=== PATIENT | male | born 1965 | race Caucasian/White ===

== ENCOUNTER → 2018-11-27 | Outpatient (CLI) | payer MEDICARE, OTHER ==
--- NOTE | 2018-11-27 08:11 | CT ---
EXAMINATION TYPE: CT image guided sinus DATE OF EXAM: 11/27/2018 COMPARISON: None HISTORY: Chronic Sinusitis CT DLP: 545 mGycm. Automated Exposure Control for Dose Reduction was Utilized. TECHNIQUE: CT scan of the sinuses is performed without contrast, axial images are obtained preprocedu re. FINDINGS: There is complete opacification of the maxillary sinuses, ethmoid air cells, frontal sinus and sphenoid sinus. Underlying polyposis not excluded. Bony expansion noted without definite bone jimena truction. IMPRESSION: Severe pansinusitis and/or underlying polyposis.
== END | disposition home or self-care (01) ==
LOC: RADCTMAIN 07:16
PROVIDERS: ATTEND Otolaryngology
DX: J32.9 Chronic sinusitis, unspecified (principal)
CPT/HCPCS: 70486

== ENCOUNTER 2023-08-13 16:16 | Emergency (ER) | payer OTHER ==
[2023-08-13 20:36] LABS: ALT 31 U/L (4-49); AST 47 U/L (17-59); African American GFR (CKD) >90 (>60 ml/min/1.73 sqM); Albumin 3.3 g/dL (3.5-5.0); Alkaline Phosphatase 104 U/L (38-126); Anion Gap 11 mmol/L; Blood Urea Nitrogen 16 mg/dL (9-20); Calcium 8.5 mg/dL (8.4-10.2); Carbon Dioxide 21 mmol/L (22-30); Chloride 104 mmol/L (98-107); Glucose 116 mg/dL (74-99); Non-African American GFR(CKD) >90 (>60 ml/min/1.73 sqM); Potassium 4.4 mmol/L (3.5-5.1); Sodium 136 mmol/L (137-145); Total Bilirubin 3.3 mg/dL (0.2-1.3); Total Protein 7.2 g/dL (6.3-8.2)
[2023-08-13 21:03] LABS: Anisocytosis Slight; Basophils % (A) 0 %; Eosinophils # (A) 0.4 k/uL (0-0.7); Eosinophils % (A) 4 %; HCT 34.4 % (39.0-53.0); HGB 11.2 gm/dL (13.0-17.5); Lymphocytes # (A) 0.8 k/uL (1.0-4.8); Lymphocytes % (A) 8 %; MCH 28.2 pg (25.0-35.0); MCHC 32.5 g/dL (31.0-37.0); MCV 86.8 fL (80.0-100.0); Mean Platelet Volume 8.4; Monocytes # (A) 0.8 k/uL (0-1.0); Monocytes % (A) 8 %; Neutrophils # (A) 7.6 k/uL (1.3-7.7); Neutrophils % (A) 77 %; RBC 3.96 m/uL (4.30-5.90); RDW 17.8 % (11.5-15.5)
[2023-08-13] MEDS ORDERED: SODIUM CHLORIDE 0.9% 2,000 ML IV ONE (21:05)
--- NOTE | 2023-08-13 21:48 | ED ---
General Adult HPI - General Chief complaint: GI Bleed Stated complaint: GI Bleed Time Seen by Provider: 08/13/23 19:39 Source: patient Mode of arrival: ambulatory Limitations: no limitations - History of Present Illness Initial comments: 58-year-old male brought in from residential with complaints of GI bleed. Patient is a poor historian. He tells me that he vomited blood once today. He has not since vomited blood or vomited at all. He also states that he has had some rectal bleeding which has been ongoing for months. He has history of alcoholism, last drink was 2 months ago. No chest pain, shortness of breath, abdominal pain, nausea, fever, headache, dizziness, numbness, tingling, weakness, palpitations, injury or trauma. - Related Data Home Medications Medication Instructions Recorded Confirmed Levothyroxine Sodium [Synthroid] 100 mcg PO DAILY 08/13/23 08/13/23 Allergies Allergy/AdvReac Type Severity Reaction Status Date / Time No Known Allergies Allergy Verified 08/13/23 20:41 Review of Systems ROS Statement: Those systems with pertinent positive or pertinent negative responses have been documented in the HPI. ROS Other: All systems not noted in ROS Statement are negative. Past Medical History Past Medical History: Hypertension History of Any Multi-Drug Resistant Organisms: None Reported Past Surgical History: Joint Replacement, Orthopedic Surgery Past Psychological History: No Psychological Hx Reported Smoking Status: Never smoker Past Alcohol Use History: None Reported Past Drug Use History: None Reported General Exam Limitations: no limitations General appearance: alert, in no apparent distress Head exam: Present: atraumatic, normocephalic Eye exam: Present: normal appearance ENT exam: Present: normal oropharynx, mucous membranes moist Neck exam: Present: normal inspection Respiratory exam: Present: normal lung sounds bilaterally. Absent: respiratory distress, wheezes, rales, rhonchi, stridor Cardiovascular Exam: Present: regular rate, normal rhythm, normal heart sounds. Absent: systolic murmur, diastolic murmur, rubs, gallop, clicks GI/Abdominal exam: Present: soft. Absent: distended, tenderness, guarding, rebound, rigid Neurological exam: Present: alert, oriented X3 Psychiatric exam: Present: normal affect, normal mood Skin exam: Present: warm, dry Course Vital Signs 08/13/23 08/13/23 16:45 22:25 Temperature 98.1 F 98.8 F Pulse Rate 75 78 Respiratory 20 17 Rate Blood Pressure 119/68 142/78 O2 Sat by Pulse 100 98 Oximetry Medical Decision Making - Medical Decision Making Was pt. sent in by a medical professional or institution ([facility] Vel[facility], [facility]ER, urgent care, hospital, or halfway...) When possible be specific @ -No Did you speak to anyone other than the patient for history (EMS, parent, family, police, friend...)? What history was obtained from this source @ -No Did you review nursing and triage notes (agree or disagree)? Why? @ -I reviewed and agree with nursing and triage notes Were old charts reviewed (outside hosp., previous admission, EMS record, old EKG, old radiological studies, urgent care reports/EKG's, halfway records)? Report findings @ -No old charts were reviewed Differential Diagnosis (chest pain, altered mental status, abdominal pain women, abdominal pain men, vaginal bleeding, weakness, fever, dyspnea, syncope, headache, dizziness, GI bleed, back pain, seizure, CVA, palpatations, mental health, musculoskeletal)? @ -Differential includes Bre Joy tear, esophageal varices, gastric ulcer, this is not an all inclusive list EKG interpreted by me (3pts min.). @ -As above X-rays interpreted by me (1pt min.). @ -None done CT interpreted by me (1pt min.). @ -None done U/S interpreted by me (1pt. min.). @ -None done What testing was considered but not performed or refused? (CT, X-rays, U/S, labs)? Why? @ -None What meds were considered but not given or refused? Why? @ -None Did you discuss the management of the patient with other professionals (professionals i.e. [facility] Velásquez, HAND SHAKER, lab, RT, psych nurse, school social worker, railroad passenger agent, teacher, mortgage loan officer, therapeutic case manager)? Give summary @ -No Was smoking cessation discussed for >3mins.? @ -No Was critical care preformed (if so, how long)? @ -No Were there social determinants of health that impacted care today? How? (Homelessness, low income, unemployed, alcoholism, drug addiction, transportation, low edu. Level, literacy, decrease access to med. care, residential, rehab)? @ -Alcoholism, currently in residential Was there de-escalation of care discussed even if they declined (Discuss DNR or withdrawal of care, Hospice)? DNR status @ -No What co-morbidities impacted this encounter? (DM, HTN, Smoking, COPD, CAD, Cancer, CVA, ARF, Chemo, Hep., AIDS, mental health diagnosis, sleep apnea, morbid obesity)? @ -None Was patient admitted / discharged? Hospital course, mention meds given and route, prescriptions, significant lab abnormalities, going to OR and other pertinent info. @ -58-year-old male presenting with chief complaint of GI bleed. Comes from residential, accompanied by police. Patient tells me he has been having rectal bleeding for months, patient also tells me that he vomited blood once today. He is not currently vomiting blood he is resting comfortably. Vital signs are WNL and the patient is hemodynamically stable. Heart and lungs are clear to auscultation there is no abdominal tenderness. Hemoglobin 11.2. BUN 16. Lactic acid 2.4, likely due to dehydration, patient will receive 2 L fluid bolus. Throughout his course in the ER patient has had no vomiting and no hematemesis. Given his stable hemoglobin and vital signs, he will be discharged back to the residential in police custody. Follow-up with GI. Follow-up with PCP. Report back to ER with any new or worsening symptoms. Discussed return parameters and answered all questions. Patient conveyed verbal understanding and agreed to the plan. I discussed this case in detail with my attending Dr. Mathew Undiagnosed new problem with uncertain prognosis? @ -No Drug Therapy requiring intensive monitoring for toxicity (Heparin, Nitro, Insulin, Cardizem)? @ -No Were any procedures done? @ -No Diagnosis/symptom? @ -Hematochezia Acute, or Chronic, or Acute on Chronic? @ -acute Uncomplicated (without systemic symptoms) or Complicated (systemic symptoms)? @ -Uncomplicated Side effects of treatment? @ -No Exacerbation, Progression, or Severe Exacerbation? @ -No Poses a threat to life or bodily function? How? (Chest pain, USA, CT, pneumonia, PE, COPD, DKA, ARF, appy, cholecystitis, CVA, Diverticulitis, Homicidal, Suicidal, threat to staff... and all critical care pts) @ -No - Lab Data Result diagrams: 08/13/23 20:18 08/13/23 20:18 Lab Results 08/13/23 08/13/23 08/13/23 Range/Units 20:18 20:18 20:18 WBC 10.0 (3.8-10.6) k/uL RBC 3.96 L (4.30-5.90) m/uL Hgb 11.2 L (13.0-17.5) gm/dL Hct 34.4 L (39.0-53.0) % MCV 86.8 (80.0-100.0) fL MCH 28.2 (25.0-35.0) pg MCHC 32.5 (31.0-37.0) g/dL RDW 17.8 H (11.5-15.5) % Plt Count 62 L (150-450) k/uL MPV 8.4 Neutrophils % 77 % Lymphocytes % 8 % Monocytes % 8 % Eosinophils % 4 % Basophils % 0 % Neutrophils # 7.6 (1.3-7.7) k/uL Lymphocytes # 0.8 L (1.0-4.8) k/uL Monocytes # 0.8 (0-1.0) k/uL Eosinophils # 0.4 (0-0.7) k/uL Basophils # 0.0 (0-0.2) k/uL Manual Slide Review Performed Poikilocytosis (manual Present Anisocytosis Slight Sodium 136 L (137-145) mmol/L Potassium 4.4 (3.5-5.1) mmol/L Chloride 104 (98-107) mmol/L Carbon Dioxide 21 L (22-30) mmol/L Anion Gap 11 mmol/L BUN 16 (9-20) mg/dL Creatinine 0.77 (0.66-1.25) mg/dL Est GFR (CKD-EPI)AfAm >90 (>60 ml/min/1.73 sqM) Est GFR (CKD-EPI)NonAf >90 (>60 ml/min/1.73 sqM) Glucose 116 H (74-99) mg/dL Lactic Ac Sepsis Rflx Plasma Lactic Acid Rito 2.4 H* (0.7-2.0) mmol/L Calcium 8.5 (8.4-10.2) mg/dL Total Bilirubin 3.3 H (0.2-1.3) mg/dL AST 47 (17-59) U/L ALT 31 (4-49) U/L Alkaline Phosphatase 104 (38-126) U/L Total Protein 7.2 (6.3-8.2) g/dL Albumin 3.3 L (3.5-5.0) g/dL 08/13/23 08/13/23 08/13/23 Range/Units 20:40 23:27 23:49 WBC (3.8-10.6) k/uL RBC (4.30-5.90) m/uL Hgb (13.0-17.5) gm/dL Hct (39.0-53.0) % MCV (80.0-100.0) fL MCH (25.0-35.0) pg MCHC (31.0-37.0) g/dL RDW (11.5-15.5) % Plt Count (150-450) k/uL MPV Neutrophils % % Lymphocytes % % Monocytes % % Eosinophils % % Basophils % % Neutrophils # (1.3-7.7) k/uL Lymphocytes # (1.0-4.8) k/uL Monocytes # (0-1.0) k/uL Eosinophils # (0-0.7) k/uL Basophils # (0-0.2) k/uL Manual Slide Review Poikilocytosis (manual Anisocytosis Sodium (137-145) mmol/L Potassium (3.5-5.1) mmol/L Chloride (98-107) mmol/L Carbon Dioxide (22-30) mmol/L Anion Gap mmol/L BUN (9-20) mg/dL Creatinine (0.66-1.25) mg/dL Est GFR (CKD-EPI)AfAm (>60 ml/min/1.73 sqM) Est GFR (CKD-EPI)NonAf (>60 ml/min/1.73 sqM) Glucose (74-99) mg/dL Lactic Ac Sepsis Rflx Y Y Plasma Lactic Acid Rito 4.0 H* (0.7-2.0) mmol/L Calcium (8.4-10.2) mg/dL Total Bilirubin (0.2-1.3) mg/dL AST (17-59) U/L ALT (4-49) U/L Alkaline Phosphatase (38-126) U/L Total Protein (6.3-8.2) g/dL Albumin (3.5-5.0) g/dL Disposition Clinical Impression: Hematochezia Disposition: HOME SELF-CARE Condition: Fair Instructions (If sedation given, give patient instructions): Gastrointestinal Bleeding (ED) Additional Instructions: Follow-up with PCP. Report back to ER with any new or worsening symptoms. Is patient prescribed a controlled substance at d/c from ED?: No Referrals: None,Stated [Primary Care Provider] - 1-2 days Dodie Ashton MD [STAFF PHYSICIAN] - 1-2 days Wilson Conde MD [STAFF PHYSICIAN] - 1-2 days Time of Disposition: 21:48
[2023-08-13 22:44] VITALS: BP 142/78; PULSE 78; RESP 17; TEMP 98.8
[2023-08-13 22:49] LABS: Platelet Count 62 k/uL (150-450)
[2023-08-13 22:50] LABS: Poikilocytosis (M) Present
== END 2023-08-14 00:02 | disposition home or self-care (01) ==
LOC: EC 16:16
DX: K92.1 Melena (principal); I10 Essential (primary) hypertension
CPT/HCPCS: 36415; 80053; 83605; 85025; 96360; 96361; 99285

== ENCOUNTER → 2023-09-29 | Outpatient (CLI) | payer BC ==
--- NOTE | 2023-09-29 13:23 | CT ---
EXAMINATION TYPE: CT abdomen wo/w con DATE OF EXAM: 09/29/2023 COMPARISON: None available. HISTORY: Splenomegaly of liver prominence. CT DLP: 656.90 mGycm Automated exposure control for dose reduction was used. TECHNIQUE: Helical acquisition of images was performed from the lung bases through the top of iliac crest to include entire abdomen. CONTRAST: Performed with Oral Contrast and without and with IV Contrast, patient injected with 100ml mL of Isov ue 300. FINDINGS: LUNG BASES: There are a few linear bands of opacity seen within the lung bases bilaterally likely ate lectasis or scarring. LIVER/GB: There is a diffuse nodular contour to the liver which is compatible with cirrhosis. No foca l liver lesion is seen. There is a moderate caliber recanalized umbilical vein. The portal vein is pa tent. Small caliber varices are seen within the gastrocolic ligament and small to moderate caliber va rices are seen within the parapharyngeal region. Small-caliber varices are seen in the distal esophag us. Several gallstones are seen within a collapsed gallbladder that are calcified. PANCREAS: No significant abnormality is seen. SPLEEN: Spleen is enlarged measuring 16.6 cm in AP dimension ADRENALS: No significant abnormality is seen. KIDNEYS: There is a 2.2 cm simple cyst in the inferior pole of the right kidney. The kidneys otherwis e appear unremarkable. BOWEL: No significant abnormality is seen. LYMPH NODES: No significant abnormality is seen. OSSEOUS STRUCTURES: No significant abnormality is seen. FREE AIR: No free air is visualized. OTHER: There is a small amount of ascites around the liver and spleen. There is moderate vascular john cification throughout the abdominal aorta without evidence of aneurysmal dilation or dissection. IMPRESSION: 1. CIRRHOSIS WITH SIGNS OF PORTAL VENOUS HYPERTENSION INCLUDING SPLENOMEGALY AND VARICES DESCRIBED AB OVE. 2. SMALL AMOUNT OF ASCITES. 3. NO SUSPICIOUS LIVER LESIONS SEEN AT THIS TIME. 4. CHOLELITHIASIS.
== END | disposition home or self-care (01) ==
LOC: RADCTMAIN 11:19
PROVIDERS: ATTEND Nurse Practitioner Family
DX: K80.20 Calculus of gallbladder without cholecystitis without obstruction (principal); K74.60 Unspecified cirrhosis of liver; R16.1 Splenomegaly, not elsewhere classified; R18.8 Other ascites
CPT/HCPCS: 74170; Q9967

== ENCOUNTER 2023-10-26 10:30 | Day surgery (SDC) | payer BC, OTHER ==
[2023-10-25 09:02] VITALS: BMI 22.9
[2023-10-26] MEDS: LACTATED RINGERS 1,000 ML IV ONE (10:45)
[2023-10-26 11:02] VITALS: TEMP 97
[2023-10-26] MEDS ORDERED: LIDOCAINE 2% (PF) 20 MG/ML 5 ML VIAL ONE (12:02)
[2023-10-26] MEDS ORDERED: PROPOFOL 10 MG/ML 20 ML VIAL IV ONE (12:02)
[2023-10-26] MEDS ORDERED: fentaNYL (PF) 50 MCG/ML 2 ML AMP ONE (12:02)
--- NOTE | 2023-10-26 12:25 | P.PCN ---
Date of Procedure: 10/26/23 Procedure(s) Performed: Brief history: Patient is a pleasant 58-year-old white male scheduled for an elective upper endoscopy as well as colonoscopy as a part of evaluation of iron deficiency anemia. His been complaining of intermittent rectal bleeding. Procedure performed: Esophagogastroduodenoscopy with biopsy Colonoscopy with snare polypectomy and biopsy Preoperative diagnosis: Iron deficiency anemia Intermittent rectal bleeding Anesthesia: MAC Procedure: After informed consent was obtained from the patient was brought into the endoscopy unit and IV sedation was administered by anesthesia under continuous monitoring. Initially upper endoscopy was done. The Olympus GF 160 video endoscope was inserted inserted into the mouth and esophagus intubated without any difficulty and was gradually advanced into the stomach and duodenum and carefully examined. The bulb and second part of the duodenum appeared normal. The scope was then withdrawn into the stomach adequately insufflated with air and upon careful examination the antrum and body, cardia and fundus appeared normal. The scope was then withdrawn into the esophagus. The GE junction was located at 40 cm to the incisors. It appeared regular with no erythema erosions or ulcerations. Rest of the esophagus appeared normal. Patient tolerated the procedure well. At this time the patient continued to remain sedation. Initial digital rectal examination was normal. Olympus CF 160 video colonoscope was then inserted into the rectum and gradually advanced to the cecum without any difficulty. Careful examination was performed as the scope was gradually being withdrawn. The prep was excellent. The cecum, ascending colon, appeared normal. In the transverse colon there was a 5 limited polyp that was removed by cold biopsy. Rest of the transverse colon, descending colon, appeared normal. In the sigmoid: There was a 1 cm polyp removed by snare polypectomy. In the distal rectum there was another 1 cm polyp removed by snare polypectomy. Rest of the sigmoid colon and rectum appeared normal. Scattered similar diverticulosis. Retroflexion was performed in the rectum and no grade 2 internal hemorrhoids Impression: 1. Upper endoscopy revealed small nonbleeding esophageal varices and mild to moderate portal hypertensive gastropathy 2. Colonoscopy revealed: a) 5 mm transverse colon polyp status post cold biopsy b) 1 cm sigmoid colon polyp status post polypectomy c) 1 cm rectal polyp status post polypectomy d) scattered sigmoid diverticulosis E) grade 2 internal hemorrhoids Recommendations: Findings of this examination were discussed with the patient. Await biopsy results. If the biopsy of the colon polyps tubular adenoma he can have a repeat colonoscopy in 3 years. In view of the findings of the esophageal varices and portal hypertensive gastropathy possibly funneling chronic liver disease needs to be investigated further. He was advised to follow up in office in one month.
[2023-10-26 13:24] VITALS: BP 108/72; PULSE 62; RESP 18
== END 2023-10-26 13:15 | disposition home or self-care (01) ==
LOC: ORWHC2ENDO 10:30
PROVIDERS: ATTEND Internal Medicine Gastroenterology
DX: D12.5 Benign neoplasm of sigmoid colon (principal); D12.3 Benign neoplasm of transverse colon; K29.50 Unspecified chronic gastritis without bleeding; D12.8 Benign neoplasm of rectum; K31.89 Other diseases of stomach and duodenum; K57.30 Diverticulosis of large intestine without perforation or abscess without bleeding; K64.1 Second degree hemorrhoids; K76.6 Portal hypertension; D50.9 Iron deficiency anemia, unspecified; Z79.899 Other long term (current) drug therapy; Z98.890 Other specified postprocedural states
CPT/HCPCS: 88305; 45380; 45385; 43239; J3010; J2704; J2001

== ENCOUNTER 2023-11-24 11:16 | Day surgery (SDC) | payer BC ==
[~2023-11-24 11:16] MED LIST: fentaNYL (PF) 50 MCG/ML 2 ML AMP IV PRN
[2023-11-24] MEDS: LACTATED RINGERS 1,000 ML IV SCH (12:05)
[2023-11-24] MEDS ORDERED: PROPOFOL 10 MG/ML 20 ML VIAL IV ONE (12:07)
[2023-11-24] MEDS: LACTATED RINGERS 1,000 ML IV ONE (12:07)
[2023-11-24 12:10] VITALS: TEMP 98.1
[2023-11-24 12:54] LABS: Basophils # (A) 0.1 k/uL (0-0.2); Basophils % (A) 1 %; Eosinophils # (A) 1.8 k/uL (0-0.7); Eosinophils % (A) 25 %; HCT 42.1 % (39.0-53.0); HGB 14.3 gm/dL (13.0-17.5); Lymphocytes % (A) 14 %; MCH 32.5 pg (25.0-35.0); MCV 95.8 fL (80.0-100.0); Mean Platelet Volume 8.8; Monocytes # (A) 0.6 k/uL (0-1.0); Monocytes % (A) 9 %; Neutrophils # (A) 3.4 k/uL (1.3-7.7); Neutrophils % (A) 48 %; RBC 4.39 m/uL (4.30-5.90); RDW 15.8 % (11.5-15.5); Reticulocyte % 2.2 % (0.5-2.0); WBC 7.2 k/uL (3.8-10.6)
[2023-11-24 12:56] VITALS: BP 105/65; PULSE 59; RESP 18
--- NOTE | 2023-11-24 13:03 | OP ---
OPERATIVE REPORT DATE OF SERVICE : PROCEDURE PERFORMED: Bone marrow biopsy with local and general sedation. DESCRIPTION OF PROCEDURE: Mr. Solomon was placed in the left lateral decubitus position with the right posterior iliac spine followed by the right posterior iliac crest being palpated. This area was sterilized with three swabs of Betadine, three swabs of alcohol, followed by placement of sterile drape. Approximately 10 mL of 1% lidocaine was applied to the periosteum. A 0.3 cm incision was made in the skin followed by advancement of a 4-inch Jamshidi needle into the bone marrow. Approximately 18 mL of aspirate was obtained along with a 1-cm core. He tolerated the procedure well without complications and with 1 mL of blood loss. He returned to postoperative recovery area in stable condition. We will send specimens for morphology flow cytometry, FISH, cytogenetics, next generation sequencing and followup on results in clinic. PREOPERATIVE DIAGNOSIS: Eosinophilia. POSTOPERATIVE DIAGNOSIS: Eosinophilia. MMODL / IJN: [id number] /
[2023-11-24 13:09] LABS: Platelet Count 46 k/uL (150-450)
== END 2023-11-24 13:13 | disposition home or self-care (01) ==
LOC: OR 11:16
PROVIDERS: ATTEND Internal Medicine
DX: D72.10 Eosinophilia, unspecified (principal); J44.9 Chronic obstructive pulmonary disease, unspecified; E03.9 Hypothyroidism, unspecified; K74.60 Unspecified cirrhosis of liver; F32.A Depression, unspecified; Z87.891 Personal history of nicotine dependence; Z79.51 Long term (current) use of inhaled steroids; Z79.890 Hormone replacement therapy
CPT/HCPCS: 85025; 85045; 38222; J2704

== ENCOUNTER 2023-12-14 08:48 | Day surgery (SDC) | payer BC ==
[2023-12-14 09:27] LABS: INR 1.6 (<1.2); Prothrombin Time 16.5 sec (10.0-12.5)
[2023-12-14 09:33] LABS: African American GFR (CKD) >90 (>60 ml/min/1.73 sqM); Non-African American GFR(CKD) >90 (>60 ml/min/1.73 sqM)
[2023-12-14] MEDS: ALBUMIN HUMAN 25% 50 ML in EMPTY BAG 1 BAG IVPB SCH (09:33)
[2023-12-14 09:35] LABS: Mean Platelet Volume 8.8
[2023-12-14 09:37] LABS: Platelet Count 57 k/uL (150-450)
--- NOTE | 2023-12-14 09:47 | US ---
Ultrasound-guided paracentesis. DATE OF EXAM: 12/14/2023 CLINICAL HISTORY: Ascites Findings: There is only a trace amount of ascites. There is a large cystic mass in the central aspect of the ab domen. Previous CT scan only partially demonstrates the area as it did not include the pelvis. Recomm end the patient have a CT of the abdomen and pelvis for complete evaluation. Incidental note of splenomegaly and findings suggestive of underlying hepatocellular disease. IMPRESSION: Discontinued paracentesis due to insufficient fluid. There appears to be a cystic mass centrally with in the abdomen recommend a dedicated CT of the abdomen and pelvis for further evaluation.
[2023-12-14 09:52] VITALS: BP 107/66; PULSE 63; RESP 18; TEMP 98.2
== END 2023-12-14 09:30 | disposition home or self-care (01) ==
LOC: RADPROMAIN 08:48
PROVIDERS: ATTEND Internal Medicine
DX: Z53.8 Procedure and treatment not carried out for other reasons (principal); R18.8 Other ascites
CPT/HCPCS: 76705; 82565; 85049; 85610; 86850; 86900; 86901